=== PATIENT | female | born 1940 | race Caucasian/White ===

== ENCOUNTER 2016-06-01 05:45 | Inpatient (IN) | payer MEDICARE, OTHER ==
[2016-06-01] VITALS (11 sets, daily range): BP systolic 87–148; BP diastolic 39–69; PULSE 55–83; TEMP 97.9–98.5
[~2016-06-01] VITALS: Ht 167.6 cm; Wt 71.9 kg
[~2016-06-01 05:45] MED LIST: CEPHALEXIN500 M1 PO; CIPRO 500MG TA500 MG PO; FLAGYL500 MG PO; HTN MED PO; NO HOME MEDICATIONS; NORCO 325 MG-7.1 TAB PO; NORVASC 5MG5 MG/TAB PO; PERCOCET 325 MG1 TA2 PO; PHENERGAN 25 TA25 MG PO; TYLENOL 8 HR PO
[2016-06-02] VITALS (7 sets, daily range): BP systolic 112–141; BP diastolic 41–60; PULSE 59–83; TEMP 97.6–98.8
[2016-06-02 06:49] LABS: BASO % 0.2 % (0.0-2.0); GRAN # 10.6 (1.4-6.5); LYMPH # 0.8 (1.2-3.4); LYMPH % 6.9 % (20.0-51.0); MEAN CELL VOLUME 87 fl (80.0-100.0); MEAN CORPUSCULAR HGB CONC 33 g/dl (33.0-37.0); MEAN PLATELET VOLUME 10.2 fl (7.4-10.4); MONO # 0.7 (0.1-0.6); MONO % 5.4 % (1.7-9.3); PLATELET COUNT 244 K/mm3 (130-400); RED BLOOD COUNT 3.87 M/mm3 (4.10-5.30); REDCELL DISTRIBUTION WIDTH-CV 14.3 % (11.5-14.5); WHITE BLOOD COUNT 12.2 K/mm3 (4.8-10.8)
[2016-06-02 06:50] LABS: HEMATOCRIT 33.7 % (37.0-47.0); MEAN CORPUSCULAR HEMOGLOBIN 28 pg (27.0-31.0)
[2016-06-02 06:58] LABS: CALCIUM 9.6 mg/dL (8.4-10.2); CREATININE, serum 1.02 mg/dL (0.52-1.25); POTASSIUM 3.2 mmol/L (3.4-5.0)
[2016-06-02 07:20] LABS: ADD PATHOLOGY DIFF REVIEW NO
[2016-06-02 08:04] LABS: BAND 30 % (0-10); NEUTROPHILS 61 % (42.0-75.2); PLATELET ESTIMATE NORMAL (NORMAL); TOTAL CELLS COUNTED 100
[2016-06-02 08:05] LABS: ANISOCYTOSIS 1+
[2016-06-03 06:36] VITALS: BP 152/67; PULSE 89; TEMP 99
[2016-06-03 07:50] VITALS: BP 141/62; PULSE 83; TEMP 98.2
[2016-06-03 10:15] VITALS: BP 137/68; PULSE 75; TEMP 98.3
[2016-06-03 13:20] VITALS: BP 141/62; PULSE 83; TEMP 98.2
[2016-06-03 18:23] VITALS: BP 145/53; PULSE 74; TEMP 99
[2016-06-03 21:16] VITALS: BP 163/73; PULSE 86; TEMP 98.9
[2016-06-04] VITALS (7 sets, daily range): BP systolic 135–204; BP diastolic 47–97; PULSE 66–100; TEMP 98.5–99.9
[2016-06-04 12:21] LABS: ADJUSTED CALCIUM 9.8 mg/dL (8.4-10.2); ALBUMIN 4.3 gm/dL (3.5-5.0); BILIRUBIN,TOTAL 1.2 mg/dL (0.0-1.0); CREATININE, serum 0.61 mg/dL (0.52-1.25); TOTAL PROTEIN 7.6 gm/dL (6.4-8.2)
[2016-06-04 12:24] LABS: HEMATOCRIT 38.6 % (37.0-47.0); HEMOGLOBIN 12.7 g/dl (12.5-16.0); MEAN CELL VOLUME 87 fl (80.0-100.0); MEAN CORPUSCULAR HEMOGLOBIN 29 pg (27.0-31.0); MEAN CORPUSCULAR HGB CONC 33 g/dl (33.0-37.0); MEAN PLATELET VOLUME 9.7 fl (7.4-10.4); PLATELET COUNT 274 K/mm3 (130-400); POTASSIUM 2.9 mmol/L (3.4-5.0); RED BLOOD COUNT 4.43 M/mm3 (4.10-5.30); REDCELL DISTRIBUTION WIDTH-CV 14.3 % (11.5-14.5); WHITE BLOOD COUNT 12.6 K/mm3 (4.8-10.8)
[2016-06-04 12:25] LABS: ADD PATHOLOGY DIFF REVIEW NO
[2016-06-04 12:42] LABS: BAND 1 % (0-10); NEUTROPHILS 93 % (42.0-75.2); TOTAL CELLS COUNTED 100
[2016-06-05 02:26] VITALS: BP 175/74; PULSE 86; TEMP 99.8
[2016-06-05 06:05] VITALS: BP 156/70; PULSE 95; TEMP 99.2
[2016-06-05 08:26] LABS: HEMATOCRIT 37.1 % (37.0-47.0); HEMOGLOBIN 12.2 g/dl (12.5-16.0); MEAN CELL VOLUME 87 fl (80.0-100.0); MEAN CORPUSCULAR HEMOGLOBIN 29 pg (27.0-31.0); MEAN CORPUSCULAR HGB CONC 33 g/dl (33.0-37.0); MEAN PLATELET VOLUME 9.8 fl (7.4-10.4); PLATELET COUNT 328 K/mm3 (130-400); RED BLOOD COUNT 4.28 M/mm3 (4.10-5.30); REDCELL DISTRIBUTION WIDTH-CV 14.5 % (11.5-14.5); WHITE BLOOD COUNT 12.2 K/mm3 (4.8-10.8)
[2016-06-05 08:31] LABS: ADD PATHOLOGY DIFF REVIEW NO
[2016-06-05 08:47] LABS: ADJUSTED CALCIUM 9.7 mg/dL (8.4-10.2); ALBUMIN 4.1 gm/dL (3.5-5.0); BILIRUBIN,TOTAL 1.1 mg/dL (0.0-1.0); CALCIUM 9.8 mg/dL (8.4-10.2); CREATININE, serum 0.54 mg/dL (0.52-1.25); POTASSIUM 3.1 mmol/L (3.4-5.0); TOTAL PROTEIN 7.2 gm/dL (6.4-8.2)
[2016-06-05 09:14] LABS: BAND 1 % (0-10); NEUTROPHILS 84 % (42.0-75.2); TOTAL CELLS COUNTED 100
[2016-06-05 09:55] VITALS: BP 186/79; PULSE 89; TEMP 99.8
[2016-06-05 13:54] VITALS: BP 186/76; PULSE 88; TEMP 99.4
[2016-06-05 17:46] VITALS: BP 178/76; PULSE 93; TEMP 99.5
[2016-06-05 22:00] VITALS: BP 161/65; PULSE 87; TEMP 98.3
[2016-06-06 02:00] VITALS: BP 183/79; PULSE 84; TEMP 98.4
[2016-06-06 05:47] VITALS: BP 170/73; PULSE 90; TEMP 98.3
[2016-06-06 09:48] VITALS: BP 162/65; PULSE 86; TEMP 98.1
[2016-06-06 13:38] VITALS: PULSE 83; TEMP 98.4
[2016-06-06 13:53] LABS: ADJUSTED CALCIUM 9.9 mg/dL (8.4-10.2); ALBUMIN 3.9 gm/dL (3.5-5.0); CALCIUM 9.8 mg/dL (8.4-10.2); CREATININE, serum 0.5 mg/dL (0.52-1.25); MAGNESIUM 1.9 mg/dL (1.6-2.3); PHOSPHOROUS 2.7 mg/dL (2.5-4.5); TOTAL PROTEIN 6.8 gm/dL (6.4-8.2)
[2016-06-06 18:07] VITALS: BP 168/77; PULSE 97
[2016-06-06 22:14] VITALS: BP 163/77; PULSE 87; TEMP 99.7
[2016-06-07 05:59] VITALS: BP 176/81; PULSE 97; TEMP 98.8
[2016-06-07 07:44] LABS: ADD PATHOLOGY DIFF REVIEW NO
[2016-06-07 08:01] LABS: HEMOGLOBIN 12.1 g/dl (12.5-16.0); MEAN CELL VOLUME 86 fl (80.0-100.0); MEAN CORPUSCULAR HEMOGLOBIN 29 pg (27.0-31.0); MEAN CORPUSCULAR HGB CONC 33 g/dl (33.0-37.0); MEAN PLATELET VOLUME 9.7 fl (7.4-10.4); PLATELET COUNT 309 K/mm3 (130-400); RED BLOOD COUNT 4.21 M/mm3 (4.10-5.30); REDCELL DISTRIBUTION WIDTH-CV 14.6 % (11.5-14.5); WHITE BLOOD COUNT 13.6 K/mm3 (4.8-10.8)
[2016-06-07 08:16] LABS: HEMATOCRIT 36.2 % (37.0-47.0)
[2016-06-07 08:21] LABS: CALCIUM 9.6 mg/dL (8.4-10.2); CREATININE, serum 0.53 mg/dL (0.52-1.25); MAGNESIUM 2.2 mg/dL (1.6-2.3); PHOSPHOROUS 1.5 mg/dL (2.5-4.5); POTASSIUM 3.5 mmol/L (3.4-5.0)
[2016-06-07 09:18] VITALS: BP 147/67; PULSE 94; TEMP 98.8
[2016-06-07 11:45] LABS: BAND 5 % (0-10); NEUTROPHILS 74 % (42.0-75.2); PLATELET ESTIMATE NORMAL (NORMAL); TOTAL CELLS COUNTED 100
[2016-06-07 14:08] VITALS: BP 158/69; PULSE 86; TEMP 97.5
[2016-06-07 18:30] VITALS: BP 168/74; PULSE 95; TEMP 97.8
[2016-06-07 21:46] VITALS: BP 147/68; PULSE 92; TEMP 99.7
[2016-06-08 06:39] LABS: MEAN CELL VOLUME 87 fl (80.0-100.0); MEAN CORPUSCULAR HGB CONC 33 g/dl (33.0-37.0); MEAN PLATELET VOLUME 9.3 fl (7.4-10.4); PLATELET COUNT 276 K/mm3 (130-400); RED BLOOD COUNT 3.94 M/mm3 (4.10-5.30); REDCELL DISTRIBUTION WIDTH-CV 14.9 % (11.5-14.5); WHITE BLOOD COUNT 10.8 K/mm3 (4.8-10.8)
[2016-06-08 06:43] VITALS: BP 144/75; PULSE 95; TEMP 98
[2016-06-08 06:47] LABS: HEMATOCRIT 34.4 % (37.0-47.0); HEMOGLOBIN 11.2 g/dl (12.5-16.0); MEAN CORPUSCULAR HEMOGLOBIN 28 pg (27.0-31.0)
[2016-06-08 06:48] LABS: ADD PATHOLOGY DIFF REVIEW NO
[2016-06-08 06:51] LABS: ADJUSTED CALCIUM 9.7 mg/dL (8.4-10.2); ALBUMIN 3.4 gm/dL (3.5-5.0); BILIRUBIN,TOTAL 0.6 mg/dL (0.0-1.0); CALCIUM 9.2 mg/dL (8.4-10.2); CREATININE, serum 0.58 mg/dL (0.52-1.25); MAGNESIUM 2.3 mg/dL (1.6-2.3); POTASSIUM 3.4 mmol/L (3.4-5.0); TOTAL PROTEIN 6.1 gm/dL (6.4-8.2)
[2016-06-08 09:05] LABS: EOSINOPHIL 3 % (0-4); METAMYELOCYTE 1 % (0-0); NEUTROPHILS 59 % (42.0-75.2); TOTAL CELLS COUNTED 100
[2016-06-08 10:05] VITALS: BP 149/63; PULSE 84; TEMP 98.3
[2016-06-08 13:40] VITALS: BP 149/71; PULSE 89; TEMP 98.2
[2016-06-08 18:37] VITALS: BP 147/60; PULSE 80; TEMP 98
[2016-06-08 21:33] VITALS: BP 151/66; PULSE 87; TEMP 99.3
[2016-06-09 02:31] VITALS: BP 143/67; PULSE 84; TEMP 97.5
[2016-06-09 05:25] VITALS: BP 129/68; PULSE 74; TEMP 97.6
[2016-06-09 06:13] LABS: CALCIUM 8.8 mg/dL (8.4-10.2); CREATININE, serum 0.58 mg/dL (0.52-1.25); MAGNESIUM 2.5 mg/dL (1.6-2.3); PHOSPHOROUS 3.6 mg/dL (2.5-4.5); POTASSIUM 3.4 mmol/L (3.4-5.0)
[2016-06-09 10:48] VITALS: BP 133/58; PULSE 77; TEMP 97.5
[2016-06-09 13:31] VITALS: BP 134/56; PULSE 62; TEMP 98.9
[2016-06-09 18:13] VITALS: BP 133/50; PULSE 81; TEMP 98.4
[2016-06-09 21:38] VITALS: BP 136/54; PULSE 71; TEMP 97.9
[2016-06-10 02:08] VITALS: BP 159/61; PULSE 75; TEMP 99.5
[2016-06-10 04:42] VITALS: BP 160/83; PULSE 76; TEMP 98.6
[2016-06-10 07:32] LABS: CALCIUM 9.1 mg/dL (8.4-10.2); CREATININE, serum 0.61 mg/dL (0.52-1.25); MAGNESIUM 2.3 mg/dL (1.6-2.3); PHOSPHOROUS 3.7 mg/dL (2.5-4.5); POTASSIUM 3.8 mmol/L (3.4-5.0)
[2016-06-10 10:23] VITALS: BP 162/65; PULSE 69; TEMP 98.3
[2016-06-10 13:54] VITALS: BP 147/63; PULSE 74; TEMP 99.3
[2016-06-10 18:39] VITALS: BP 132/62; PULSE 80; TEMP 98.5
[2016-06-10 21:11] VITALS: BP 131/56; PULSE 80; TEMP 99.2
[2016-06-11 05:00] VITALS: BP 169/68; PULSE 73; TEMP 98.7
[2016-06-11 10:09] VITALS: BP 146/64; PULSE 75; TEMP 98.3
[2016-06-11 13:58] VITALS: BP 146/64; PULSE 75; TEMP 98.3
[2016-06-11 14:14] VITALS: BP 140/50; BP 90/75; PULSE 72; TEMP 97.8
[2016-06-12] MEDS ORDERED: ALMACONE 360 M360 ML PO ×2 (16:06→18:04)
[2016-06-12] MEDS ORDERED: ZOFRAN 4MG T4 MG/TAB PO (16:07)
[2016-06-12] MEDS ORDERED: MILK OF MA400 MG/52 PO (18:03)
[2016-06-12] MEDS ORDERED: DULCOLAX S10 MG/SUPP RC (18:05)
[2016-06-12] MEDS ORDERED: TYLENOL SU650 MG/SUP RC (18:06)
[2016-06-12] MEDS ORDERED: TYLENOL 325MG325 MG PO (18:06)
[2016-06-12] MEDS ORDERED: IMODIUM 2MG CAPS2 MG PO (18:07)
== END 2016-06-11 16:20 | DRG 330 ==
LOC: SDCO 05:45 → INPTSU 06:00 → EDSTATUS 07:30 → SURG 07:30
PROVIDERS: Surgery
PROC: 8E0W4CZ Robotic Assisted Procedure of Trunk Region, Percutaneous Endoscopic Approach (ICD-10-PCS; 2016-06-01)
PROC: 0DBP4ZX Excision of Rectum, Percutaneous Endoscopic Approach, Diagnostic (ICD-10-PCS; 2016-06-01)
PROC: 0DTN4ZZ Resection of Sigmoid Colon, Percutaneous Endoscopic Approach (ICD-10-PCS; principal; 2016-06-01 07:30)
DX: K57.32 Diverticulitis of large intestine without perforation or abscess without bleeding (principal); K91.3 Postprocedural intestinal obstruction; E44.0 Moderate protein-calorie malnutrition; I10 Essential (primary) hypertension
CPT/HCPCS: A4217; A4315; A9284; B4178; C1751; G0378; J0330; J0360; J0610; J0690; J0694; J1100; J1170; J1644; J1650; J1815; J1885; J2405; J2550; J2704; J2765; J3010; J3475; J3480; J7120; J7131

== ENCOUNTER 2016-06-12 15:17 | Inpatient (IN) | payer MEDICARE, OTHER ==
[~2016-06-12] VITALS: Ht 167.6 cm; Wt 73.1 kg
[2016-06-12] MEDS ORDERED: ALMACONE 360 M360 ML PO ×2 (16:06→18:04)
[2016-06-12 16:07] LABS: BASO % 0.1 % (0.0-2.0); EOS # 0.1 (0.0-0.7); EOS % 0.3 % (0-4.0); GRAN % 76.7 % (42.2-75.2); LYMPH % 12.7 % (20.0-51.0); MEAN CELL VOLUME 87 fl (80.0-100.0); MEAN CORPUSCULAR HGB CONC 34 g/dl (33.0-37.0); MEAN PLATELET VOLUME 10.1 fl (7.4-10.4); MONO # 1.4 (0.1-0.6); PLATELET COUNT 327 K/mm3 (130-400); REDCELL DISTRIBUTION WIDTH-CV 14.8 % (11.5-14.5); WHITE BLOOD COUNT 15.6 K/mm3 (4.8-10.8)
[2016-06-12] MEDS ORDERED: ZOFRAN 4MG T4 MG/TAB PO (16:07)
[2016-06-12 16:08] LABS: HEMATOCRIT 25.3 % (37.0-47.0); HEMOGLOBIN 8.5 g/dl (12.5-16.0); MEAN CORPUSCULAR HEMOGLOBIN 29 pg (27.0-31.0)
[2016-06-12 16:22] LABS: ADJUSTED CALCIUM 9.7 mg/dL (8.4-10.2); ALBUMIN 3.6 gm/dL (3.5-5.0); BILIRUBIN,TOTAL 0.7 mg/dL (0.0-1.0); CALCIUM 9.4 mg/dL (8.4-10.2); CREATININE, serum 0.86 mg/dL (0.52-1.25); POTASSIUM 3.4 mmol/L (3.4-5.0); TOTAL PROTEIN 6.2 gm/dL (6.4-8.2)
[2016-06-12 17:53] VITALS: BP 137/62; PULSE 82; TEMP 98.6
[2016-06-12] MEDS ORDERED: MILK OF MA400 MG/52 PO (18:03)
[2016-06-12] MEDS ORDERED: DULCOLAX S10 MG/SUPP RC (18:05)
[2016-06-12] MEDS ORDERED: TYLENOL 325MG325 MG PO (18:06)
[2016-06-12] MEDS ORDERED: TYLENOL SU650 MG/SUP RC (18:06)
[2016-06-12] MEDS ORDERED: IMODIUM 2MG CAPS2 MG PO (18:07)
[2016-06-12 22:11] VITALS: BP 96/43; PULSE 74; TEMP 97.6
[2016-06-13] VITALS (14 sets, daily range): BP systolic 108–137; BP diastolic 46–88; PULSE 62–79; TEMP 97.6–98.2
[2016-06-13 08:05] LABS: HEMATOCRIT 23.3 % (37.0-47.0); HEMOGLOBIN 7.5 g/dl (12.5-16.0)
[2016-06-13 08:14] LABS: CALCIUM 9.1 mg/dL (8.4-10.2); CREATININE, serum 0.86 mg/dL (0.52-1.25); POTASSIUM 3.5 mmol/L (3.4-5.0)
[2016-06-14] VITALS: BP 155/67; PULSE 59; TEMP 98
[2016-06-14 02:03] VITALS: BP 137/53; PULSE 62; TEMP 98.3
[2016-06-14 02:39] LABS: HEMATOCRIT 26.1 % (37.0-47.0); HEMOGLOBIN 8.7 g/dl (12.5-16.0)
[2016-06-14 05:14] VITALS: BP 122/56; PULSE 77; TEMP 97.6
[2016-06-14 08:14] LABS: MEAN CELL VOLUME 91 fl (80.0-100.0); MEAN CORPUSCULAR HGB CONC 33 g/dl (33.0-37.0); MEAN PLATELET VOLUME 9.9 fl (7.4-10.4); PLATELET COUNT 288 K/mm3 (130-400); RED BLOOD COUNT 3.04 M/mm3 (4.10-5.30); REDCELL DISTRIBUTION WIDTH-CV 14.6 % (11.5-14.5); WHITE BLOOD COUNT 8.4 K/mm3 (4.8-10.8)
[2016-06-14 08:52] LABS: HEMATOCRIT 27.5 % (37.0-47.0); MEAN CORPUSCULAR HEMOGLOBIN 30 pg (27.0-31.0)
[2016-06-14 09:11] VITALS: BP 122/46; PULSE 72; TEMP 97.9
[2016-06-14 14:40] VITALS: BP 113/44; PULSE 74; TEMP 98.5
[2016-06-14 14:59] VITALS: BP 113/44; PULSE 74; TEMP 98.5
== END 2016-06-14 17:08 | DRG 384 ==
LOC: COL.ER 15:17 → SURG 16:39
PROVIDERS: Emergency Medicine; Surgery
PROC: 0DB78ZX Excision of Stomach, Pylorus, Via Natural or Artificial Opening Endoscopic, Diagnostic (ICD-10-PCS; principal; 2016-06-13 12:30)
DX: K26.3 Acute duodenal ulcer without hemorrhage or perforation (principal)
CPT/HCPCS: C9113; J2704; J7030; J7050; P9016

== ENCOUNTER 2016-06-21 16:34 | Observation (INO) | payer OTHER, MEDICARE ==
[2016-06-21] VITALS (11 sets, daily range): BP systolic 110–143; BP diastolic 52–71; PULSE 73–84; TEMP 97.8–98.3
[~2016-06-21] VITALS: Ht 167.6 cm; Wt 72.7 kg
[~2016-06-21 16:34] MED LIST changes: -CARAFATE S1 GM/10 ML PO; -FERROUS SU325 MG/TAB PO; -PROTONIX 40MG T40 MG PO
[2016-06-21] MEDS ORDERED: CARAFATE S1 GM/10 ML PO (17:12)
[2016-06-21] MEDS ORDERED: PROTONIX 40MG T40 MG PO (17:13)
[2016-06-22 02:04] VITALS: BP 140/60; PULSE 77; TEMP 97.8
[2016-06-22 02:15] LABS: HEMATOCRIT 23.2 % (37.0-47.0); HEMOGLOBIN 7.8 g/dl (12.5-16.0)
[2016-06-22 05:57] VITALS: BP 124/51; PULSE 74; TEMP 97.9
[2016-06-22 09:14] VITALS: BP 132/50; PULSE 80; TEMP 98.1
[2016-06-22 13:18] VITALS: BP 126/56; PULSE 77; TEMP 97.8
[2016-06-22 14:39] LABS: HEMATOCRIT 25.2 % (37.0-47.0); HEMOGLOBIN 8.4 g/dl (12.5-16.0)
[2016-06-22] MEDS ORDERED: FERROUS SU325 MG/TAB PO (15:22)
[2016-06-22 15:26] VITALS: BP 126/56; PULSE 77; TEMP 97.8
== END 2016-06-22 15:40 ==
LOC: SURG 16:34
PROVIDERS: Surgery
DX: D50.0 Iron deficiency anemia secondary to blood loss (chronic) (principal)
CPT/HCPCS: G0378; G0379; J1940; P9016

== ENCOUNTER → 2016-06-21 | Outpatient (REF) ==
[~2016-06-21] MED LIST changes: +ALMACONE 360 M360 ML PO; +CARAFATE S1 GM/10 ML PO; +DULCOLAX S10 MG/SUPP RC; +FERROUS SU325 MG/TAB PO; +IMODIUM 2MG CAPS2 MG PO; +MILK OF MA400 MG/52 PO; +PROTONIX 40MG T40 MG PO; +TYLENOL 325MG325 MG PO; +TYLENOL SU650 MG/SUP RC; +ZOFRAN 4MG T4 MG/TAB PO
[2016-06-21 14:58] LABS: BASO % 0.3 % (0.0-2.0); EOS # 0.1 (0.0-0.7); EOS % 1.1 % (0-4.0); GRAN # 5.9 (1.4-6.5); GRAN % 75.1 % (42.2-75.2); LYMPH # 1.3 (1.2-3.4); LYMPH % 16.7 % (20.0-51.0); MEAN CELL VOLUME 91 fl (80.0-100.0); MEAN CORPUSCULAR HGB CONC 32 g/dl (33.0-37.0); MEAN PLATELET VOLUME 10.1 fl (7.4-10.4); MONO # 0.5 (0.1-0.6); PLATELET COUNT 273 K/mm3 (130-400); RED BLOOD COUNT 2.05 M/mm3 (4.10-5.30); REDCELL DISTRIBUTION WIDTH-CV 15.4 % (11.5-14.5); WHITE BLOOD COUNT 7.9 K/mm3 (4.8-10.8)
[2016-06-21 15:43] LABS: HEMATOCRIT 18.7 % (37.0-47.0); MEAN CORPUSCULAR HEMOGLOBIN 29 pg (27.0-31.0)
== END ==
LOC: ZCOL.LAB 12:20
DX: Z01.89 Encounter for other specified special examinations (principal)

== ENCOUNTER 2023-12-08 13:35 | Emergency (ER) | payer MEDICARE ==
[~2023-12-08] VITALS: Ht 162.6 cm; Wt 65.9 kg
[2023-12-08 13:35] VITALS: TEMP 98.9
[~2023-12-08 13:35] MED LIST changes: +CARAFATE S1 GM/10 ML PO; +FERROUS SU325 MG/TAB PO; +PROTONIX 40MG T40 MG PO
[2023-12-08] MEDS ORDERED: Ketamine 50 MG/5 ML SYRINGE IV ONE (13:45)
--- NOTE | 2023-12-08 16:53 | NUR ---
concession worker received consult verbally at 1550 for pt with ankle fx and needing extra services. VIOLETA spoke with MADELYN Hernandez who reports pt is NWB and is likely discharging. VIOLETA spoke with [facility] Leonora who reports pt is not being admitted, is NWB, and will do OP ortho follow up on Monday due to increased swelling. VIOLETA met with pt and her male friend. She confirmed to live alone in [place]. She sees Dr. Og for PCP needs and she states she obtains medications from Dr. Og's office with no difficulties. She had Medicare [employer] insurance. Pt is independent with ADLS and uses no DME. She has a shower chair and FWW available at home. She confirmed her son, Ruperto is DPOA-HC. She drives herself to appointments and has no stairs in her home. Pt reports she has been in contact with her son, Ruperto and MOIRA Shea. VIOLETA brainstormed options for discharge. She is a passport member at [facility]. Pt could not comprehend the extent of the dx and how she is NWB at this time. Pt would not decide if she wants to private pay for [facility] for the time being. VIOLETA discussed Home Health services and she was open to this. VIOLETA spoke with PT Eloy who states wheelchair would be best for pt. VIOLETA obtained script from [facility] and faxed/emailed this to [facility] to bring to her room. [facility] aware. VIOLETA faxed HH referral to [facility]. VIOLETA spoke with Hanny at [facility] to follow for pt, in case she needs further care. She will collaborate with the Home Health to check in with her and son. VIOLETA spoke with son, Ruperto who reports to be on the way to the hospital. He was agreeable to the plan for HH and urged to check on her more frequently for the time being. He states they have other "people" that can help out as well. VIOLETA spoke with [facility] who received the wheelchair order and are working on it. VIOLETA asked them to be in contact with son, if not able to deliver to ER.
[2023-12-08] MEDS ORDERED: NORCO 325 MG-51 TAB PO (17:01)
[2023-12-08 17:15] VITALS: BP 147/82; PULSE 64
--- NOTE | 2023-12-11 11:19 | NUR ---
VIOLETA spoke with Marty and Joann PEREZ who reports they received the referral and are processing it now. VIOLETA urged him to call pt's son with any questions/concerns. Marty reports he will be in touch with pt/family.
== END 2023-12-08 17:15 | disposition home or self-care (01) ==
LOC: COL.ER 13:35
DX: S82.891A Other fracture of right lower leg, initial encounter for closed fracture (principal); W18.30XA Fall on same level, unspecified, initial encounter; Y93.01 Activity, walking, marching and hiking

== ENCOUNTER 2023-12-15 14:54 | Emergency (ER) | payer MEDICARE ==
[~2023-12-15] VITALS: Ht 160 cm; Wt 68.2 kg
[~2023-12-15 14:54] MED LIST changes: +NORCO 325 MG-51 TAB PO
[2023-12-15 15:04] VITALS: BP 151/75; PULSE 73; TEMP 98
== END 2023-12-15 18:50 | disposition home or self-care (01) ==
LOC: COL.ER 14:54
DX: S90.01XA Contusion of right ankle, initial encounter (principal); W07.XXXA Fall from chair, initial encounter

== ENCOUNTER 2023-12-24 00:25 | Emergency (ER) | payer MEDICARE ==
[~2023-12-24] VITALS: Ht 162.6 cm; Wt 68.2 kg
[2023-12-24 00:36] VITALS: TEMP 97.6
[2023-12-24 01:03] LABS: HEMOGLOBIN 11.1 g/dl (12.5-16.0); MEAN CELL VOLUME 88 fl (80.0-100.0); MEAN CORPUSCULAR HEMOGLOBIN 29 pg (27-31); MEAN CORPUSCULAR HGB CONC 33 g/dl (33.0-37.0); MEAN PLATELET VOLUME 10.2 fl (7.4-10.4); PLATELET COUNT 230 K/mm3 (130-400); RED BLOOD COUNT 3.83 M/mm3 (4.10-5.30); REDCELL DISTRIBUTION WIDTH-CV 15.8 % (11.5-14.5)
[2023-12-24 01:12] LABS: HEMATOCRIT 33.8 % (37.0-47.0)
[2023-12-24 01:22] LABS: ALBUMIN 3.5 g/dL (3.4-4.8); BILIRUBIN,TOTAL 0.7 mg/dL (0.2-1.2); CALCIUM 9.1 mg/dL (8.4-10.2); CREATININE, serum 1.21 mg/dL (0.57-1.11); POTASSIUM 3.2 mEq/L (3.5-4.5); TOTAL PROTEIN 6.1 g/dl (6.2-8.1)
[2023-12-24 01:35] LABS: TROPONIN-I 0.186 ng/mL (0.00-0.033)
[2023-12-24] MEDS ORDERED: LR 500 ML IV ONE (01:45)
[2023-12-24 01:48] LABS: BAND 4 % (0-10); LYMPHOCYTE 5 % (20.0-51.0); NEUTROPHILS 86 % (42.0-75.2)
[2023-12-24 01:49] LABS: ANISOCYTOSIS 1+; OVALOCYTES 1+; PLATELET ESTIMATE NORMAL (NORMAL)
[2023-12-24] MEDS ORDERED: Iohexol 300 - 100 ML VIAL IV ONE (02:12)
[2023-12-24] MEDS ORDERED: NS 50 ML IV SCH (02:14)
[2023-12-24] MEDS ORDERED: Heparin 1,000 UNITS/0.2 ML Re-Bolus PRN IV ×2 (03:30→03:45)
[2023-12-24] MEDS ORDERED: [UNRECOGNIZED DRUG - REMARK] IV ONE (03:30)
[2023-12-24] MEDS ORDERED: [UNRECOGNIZED DRUG - OTHER] IV SCH ×2 (03:30→03:45)
[2023-12-24 04:08] LABS: PARTIAL THROMBOPLASTIN TIME 27.2 SECONDS (26.0-37.0)
[2023-12-24 05:15] VITALS: BP 135/90; PULSE 84
== END 2023-12-24 05:40 | disposition short-term general hospital (02) ==
LOC: COL.ER 00:25
PROVIDERS: Emergency Medicine
DX: I26.99 Other pulmonary embolism without acute cor pulmonale (principal); R55 Syncope and collapse; N17.9 Acute kidney failure, unspecified; Z20.822 Contact with and (suspected) exposure to COVID-19
CPT/HCPCS: J1644; J7120; Q9967